=== PATIENT | male | born 1960 | race Caucasian/White ===

== ENCOUNTER 2017-10-19 15:32 | Emergency (ER) | payer OTHER ==
[2017-10-19] MEDS ORDERED: NS 1,000 ML IV ONE (15:38)
[2017-10-19] MEDS ORDERED: DIAZEPAM 5 MG/ML 1 ML SYR IVP ONE (15:38)
--- NOTE | 2017-10-19 15:40 | EDPHY ---
H & P Time Seen by Provider: 10/19/17 15:38 HPI/ROS: Chief Complaint: Dizziness, vomiting HPI: 57-year-old male with a history of Meniere's disease. He has been having exacerbation of symptoms the last 3 days. Today is nausea vomiting got severity went to [facility] for further evaluation. They called EMS and sent him here. He refused any treatment from the ambulance crew. No fevers or chills. No headache. Has not been able to keep any medicine down. Has not taken any medicine for this. ROS: 10 point Review of Systems is negative except as noted in the HPI. PMH: Meniere's disease Social History: No smoking, no alcohol, no recreational drug use Family History: non-contributory Physical Exam: Gen: Awake, Alert, No Distress HEENT: Nose: no rhinorrhea Eyes: PERRLA, EOMI, patient has rotary nystagmus Mouth: Moist mucosa Neck: Supple, no JVD Chest: nontender, lungs clear to auscultation Heart: S1, S2 normal, no murmur Abd: Soft, non-tender, no guarding Back: no CVA tenderness, no midline tenderness Ext: no edema, non-tender Skin: no rash Neuro: CN II-XII intact, Sensation grossly intact, Strength 5/5 in bilateral upper and lower extremities Constitutional: Initial Vital Signs Temperature (C) 36.8 C 10/19/17 15:37 Heart Rate 70 10/19/17 15:37 Respiratory Rate 18 10/19/17 15:37 Blood Pressure 113/70 10/19/17 15:37 O2 Sat (%) 93 10/19/17 15:37 O2 Delivery Mode Room Air O2 (L/minute) 2 Allergies/Adverse Reactions: No Known Allergies Allergy (Unverified 10/24/11 04:48) Home Medications: Medication Instructions Recorded Diazepam 5 mg PO TID PRN #15 tab 10/19/17 Water Pill 10/19/17 Medical Decision Making ED Course/Re-evaluation: Patient is improved after diazepam. He has no more nausea or vomiting. Plan will be to discharge with follow up with [facility]. I have given a prescription for diazepam at home as well. - Data Points Laboratory Results: Laboratory Results 10/19/17 15:50 10/19/17 15:50 10/19/17 10/19/17 15:50 15:50 WBC 6.40 10^3/uL 10^3/uL (3.80-9.50) RBC 6.16 10^6/uL 10^6/uL (4.40-6.38) Hgb 17.8 g/dL H g/dL (13.7-17.5) Hct 51.2 % H % (40.0-51.0) MCV 83.1 fL fL (81.5-99.8) MCH 28.9 pg pg (27.9-34.1) MCHC 34.8 g/dL g/dL (32.4-36.7) RDW 12.1 % % (11.5-15.2) Plt Count 247 10^3/uL 10^3/uL (150-400) MPV 9.8 fL fL (8.7-11.7) Neut % (Auto) 62.3 % % (39.3-74.2) Lymph % (Auto) 28.8 % % (15.0-45.0) [place] % (Auto) 7.0 % % (4.5-13.0) Eos % (Auto) 1.1 % % (0.6-7.6) Baso % (Auto) 0.5 % % (0.3-1.7) Nucleat RBC Rel Count 0.0 % % (0.0-0.2) Absolute Neuts (auto) 3.99 10^3/uL 10^3/uL (1.70-6.50) Absolute Lymphs (auto) 1.84 10^3/uL 10^3/uL (1.00-3.00) Absolute Monos (auto) 0.45 10^3/uL 10^3/uL (0.30-0.80) Absolute Eos (auto) 0.07 10^3/uL 10^3/uL (0.03-0.40) Absolute Basos (auto) 0.03 10^3/uL 10^3/uL (0.02-0.10) Absolute Nucleated RBC 0.00 10^3/uL 10^3/uL (0-0.01) Immature Gran % 0.3 % % (0.0-1.1) Immature Gran # 0.02 10^3/uL 10^3/uL (0.00-0.10) Sodium 136 mEq/L mEq/L (135-145) Potassium 3.7 mEq/L mEq/L (3.3-5.0) Chloride 102 mEq/L mEq/L (97-110) Carbon Dioxide 25 mEq/l mEq/l (22-31) Anion Gap 9 mEq/L mEq/L (8-16) BUN 15 mg/dL mg/dL (7-23) Creatinine 1.0 mg/dL mg/dL (0.7-1.3) Estimated GFR > 60 Glucose 138 mg/dL H mg/dL (70-100) Calcium 9.6 mg/dL mg/dL (8.5-10.4) Medications Given: Discontinued Medications Diazepam (Valium) 5 mg IVP EDNOW ONE Stop: 10/19/17 15:39 Last Admin: 10/19/17 15:56 Dose: 5 mg Haloperidol Lactate (Haldol Injection) 2.5 mg IVP EDNOW ONE Stop: 10/19/17 18:21 Last Admin: 10/19/17 18:43 Dose: Not Given Sodium Chloride (Ns) 1,000 mls @ 0 mls/hr IV ONCE ONE; Wide Open PRN Reason: Protocol Stop: 10/19/17 15:39 Last Admin: 10/19/17 15:56 Dose: 1,000 mls Departure - Departure Disposition: Home, Routine, Self-Care Clinical Impression: Vertigo, Meniere disease Condition: Good Instructions: Meniere Disease (ED), Vertigo (ED) Additional Instructions: You may take diazepam as needed for your vertigo. Follow up with [facility] doctor in 3-4 days for further evaluation. Return to the emergency depart for uncontrolled nausea vomiting, dizziness, fevers, or any other concerns. Referrals: Patient,NotPresent [Unknown] - As per Instructions Zan Nance MD [Medical Doctor] - As per Instructions Prescriptions: Diazepam 5 mg PO TID PRN #15 tab PRN Reason: Dizziness
[2017-10-19 16:04] LABS: PLATELET COUNT 247 10^3/uL (150-400)
[2017-10-19] MEDS ORDERED: HALOPERIDOL LACT 5 MG/ML INJ IVP ONE (18:20)
[2017-10-19 19:18] VITALS: BP 107/73
== END 2017-10-19 19:18 | disposition home or self-care (01) ==
LOC: EDUNIT#
DX: H81.09 Meniere's disease, unspecified ear (principal); E86.9 Volume depletion, unspecified
CPT/HCPCS: 96374; J1630; J3360